=== PATIENT | female | born 2005 | race Caucasian/White ===

== ENCOUNTER → 2023-08-25 | Outpatient (CLI) | payer SELFPAY ==
[2023-08-25 08:09] LABS: Glucose 75GTT - Fasting 88 mg/dL (70-99)
[2023-08-25 08:24] LABS: Free T3 2.4 pg/mL (2.18-3.98); Prolactin 24.7 ng/mL; T4 Free Direct 0.87 ng/dL (0.76-1.46)
[2023-08-25 09:16] LABS: Glucose 75GTT - 30 minutes 156 mg/dL (100-160)
[2023-08-25 09:16] LABS: Glucose 75GTT - 60 minutes 118 mg/dL (100-160)
[2023-08-25 09:30] LABS: Insulin 75GTT - 60 min 129.4 mU/L (Not Estab)
[2023-08-25 09:30] LABS: T3 Total - Triiodothyronine 1.18 ng/mL (0.6-1.81)
[2023-08-25 09:35] LABS: Prolactin 15.4 ng/mL; Thyroid Stim Hormone (TSH) 4.16 uIU/mL (0.358-3.74)
[2023-08-25 09:36] LABS: Prolactin 16.7 ng/mL; Thyroid Stim Hormone (TSH) 4.99 uIU/mL (0.358-3.74)
[2023-08-25 09:55] LABS: Glucose 73 mg/dL (74-106)
[2023-08-25 09:58] LABS: Insulin 45.2 mU/L (2.6-37.6)
[2023-08-25 09:58] LABS: Glucose 75GTT - 120 minutes 90 mg/dL (70-140); Insulin 75GTT - 120 min 100.9 mU/L (Not Estab.)
[2023-08-25 10:00] LABS: Insulin 75GTT - Fasting 8.1 mU/L (2.6-37.6)
== END | disposition home or self-care (01) ==
LOC: LAB 06:59
PROVIDERS: Referring Provider Obstetrics & Gynecology; Visit Provider Obstetrics & Gynecology
DX: E28.9 Ovarian dysfunction, unspecified (principal)
CPT/HCPCS: 36415; 82947; 82951; 82952; 83525; 84146; 84439; 84443; 84480; 84481

== ENCOUNTER → 2023-10-06 | Outpatient (CLI) | payer SELFPAY ==
--- NOTE | 2023-10-06 07:45 | MRI_ITS ---
STUDY: MRI BRAIN WITH AND WITHOUT CONTRAST REASON FOR EXAM: Female, 18 years old. HEADACHE- DAILY X 1 MONTH TECHNIQUE: Standardized multiplanar fat and water weighted pulse sequences were obtained. IV 11ml clariscan was administered for the contrast portion of the examination. COMPARISON: None. FINDINGS: Normal size of the ventricles and extra-axial spaces for the patient''s age. Normal white matter tracts of the supratentorial brain. There are no demyelinating plagues of the supratentorial brain, brainstem or cerebellum. There are no findings suspicious for multiple sclerosis (MS). Normal bilateral frontal poles, and orbital frontal and gyrus recti of the frontal lobes. Normal bilateral temporal tips of the temporal lobes. There are no white matter shear injuries (diffuse axonal injuries). There are no parenchymal hemorrhages or hematomas. There are no findings to suggest prior closed head parenchymal injury of the brain. There are no white matter hyperintensities. Specifically, there are no focal areas of white matter gliosis which are occasionally associated with vasospastic migraine headaches. Normal bilateral basal ganglia. Normal thalami. There is no extra-axial fluid accumulation. Normal T2* images of the brain without demonstrated susceptibility artifact. There is no demonstrated hemosiderin stain. There is no evidence for recent intracranial ischemia or other cause of cytotoxic edema on diffusion weighted imaging (DWI). No hydrocephalus or midline shift is present. No focal parenchymal edema is seen. There are no visualized enhancing lesions of the brain parenchyma or abnormal thickening or enhancement of meninges or dura or skull. Normal flow voids within the major intracranial circulation suggesting patency by spin echo criteria. Normal venous enhancement. There is no enhancing intra-axial or extra-axial abnormality. Normal sella turcica, pituitary gland, infundibular stalk, optic chiasm and hypothalamus. Normal tectal plate and pineal gland. Normal midbrain, ryland and medulla. Normal cerebellum. Normal basal cisterns. Normal bilateral temporal bones. Normal bilateral internal auditory canals. No demonstrated orbital abnormality, within the constraints of a routine brain study. Normal visualized paranasal sinuses. Normal calvarium and skull base. Normal visualized soft tissue structures. Normal visualized upper cervical spine. MRI/Brain W/WO Contrast IMPRESSION: 1. Normal unenhanced and enhanced MRI of the brain. Electronically Signed: James Aaron MD at 10:02 EDT ,
== END | disposition home or self-care (01) ==
PROVIDERS: PCP Family Medicine; Referring Provider Obstetrics & Gynecology; Visit Provider Obstetrics & Gynecology
DX: R51.9 Headache, unspecified (principal)
CPT/HCPCS: 70553; A9575

== ENCOUNTER → 2023-11-18 | Outpatient (CLI) | payer SELFPAY ==
[2023-11-18 08:43] LABS: Prolactin 1.9 ng/mL; T4 Free Direct 1.32 ng/dL (0.76-1.46); Thyroid Stim Hormone (TSH) 0.05 uIU/mL (0.358-3.74)
== END | disposition home or self-care (01) ==
PROVIDERS: PCP Family Medicine; Referring Provider Obstetrics & Gynecology; Visit Provider Obstetrics & Gynecology
DX: E03.8 Other specified hypothyroidism (principal); E21.1 Secondary hyperparathyroidism, not elsewhere classified
CPT/HCPCS: 36415; 84146; 84432; 84439; 84443; 86376; 86800

== ENCOUNTER → 2024-02-24 | Outpatient (CLI) | payer SELFPAY ==
[2024-02-24 15:42] LABS: Hematocrit 36.6 % (37-47); Mean Corp Hgb Conc 32.8 g/dL (32-36); Mean Corpuscular Hgb 30.4 pg (27.0-32.0); Mean Corpuscular Volume 92.7 fL (81-99); Mean Platelet Vol. 9.4 fl (6.2-12.0); Platelet Count 261 K/mm3 (150-450); RBC Distribution Width CV 12.5 % (11.6-14.6); RBC Distribution Width SD 43.1 fl (35.1-43.9); Red Blood Count 3.95 M/mm3 (4.2-5.4); White Blood Count 4.1 K/mm3 (4.4-11.0)
[2024-02-24 16:37] LABS: Ferritin 45 ng/mL (8-252); T4 Free Direct 0.75 ng/dL (0.76-1.46)
== END | disposition home or self-care (01) ==
PROVIDERS: PCP Family Medicine; Referring Provider Obstetrics & Gynecology; Visit Provider Obstetrics & Gynecology
DX: E03.8 Other specified hypothyroidism (principal); R53.82 Chronic fatigue, unspecified
CPT/HCPCS: 36415; 82728; 84439; 84443; 85027

== ENCOUNTER → 2024-05-13 | Outpatient (CLI) | payer SELFPAY ==
[2024-05-13 11:37] LABS: Free T3 2.7 pg/mL (2.18-3.98); T4 Free Direct 1.01 ng/dL (0.76-1.46)
[2024-05-16 18:02] LABS: T3 Total - Triiodothyronine 1.07 ng/mL (0.6-1.81)
== END | disposition home or self-care (01) ==
PROVIDERS: PCP Family Medicine; Referring Provider Obstetrics & Gynecology; Visit Provider Obstetrics & Gynecology
DX: E03.8 Other specified hypothyroidism (principal); E22.1 Hyperprolactinemia; E06.3 Autoimmune thyroiditis; R53.82 Chronic fatigue, unspecified
CPT/HCPCS: 36415; 84146; 84439; 84443; 84480; 84481

== ENCOUNTER → 2024-11-08 | Outpatient (CLI) | payer SELFPAY ==
[2024-11-08 10:10] LABS: Ferritin 68 ng/mL (22-378)
[2024-11-09 08:08] LABS: PROLACTIN 1.5 ng/mL (4.8-33.4)
== END | disposition home or self-care (01) ==
PROVIDERS: Referring Provider Obstetrics & Gynecology; Visit Provider Obstetrics & Gynecology
DX: E03.8 Other specified hypothyroidism (principal); E22.1 Hyperprolactinemia
CPT/HCPCS: 36415; 82728; 84146

== ENCOUNTER → 2024-11-21 | Outpatient (CLI) | payer SELFPAY ==
--- NOTE | 2024-11-21 14:42 | US_ITS ---
PROCEDURE: PELVIC (NON ) 11/21/2024 REASON FOR EXAM: EXCESSIVE AND FREQUENT MENSTRUATION WITH REGULAR CYCLE TECHNIQUE: PELVIC (NON ) ultrasound, transabdominal. Transvaginal imaging was attempted, but due to patient discomfort, images could not be obtained. COMPARISON: None. FINDINGS: Measurements: Uterus: 8.2 x 5.5 x 3.6 cm with a volume of 82 mL Endometrial Thickness: 7.5 mm. Right Ovary: 3.7 x 2.0 x 1.7 cm with a volume of 6.4 mL. Left Ovary: 3.9 x 2.3 x 1.9 cm with a volume of 8.8 mL. Urinary bladder: 15.0 x 10.1 by 10.9 cm, with estimated volume of 860 mL Uterus: Normal size, myometrial echotexture, and contour. Endometrium: Unremarkable. Right ovary: Normal size and echotexture. Left ovary: Normal size and echotexture. Urinary bladder: Unremarkable. No free fluid is evident. US/Pelvic (Non ) IMPRESSION: No abnormality identified Reading Location: [place] [id number]
== END | disposition home or self-care (01) ==
PROVIDERS: Referring Provider Obstetrics & Gynecology; Visit Provider Obstetrics & Gynecology
DX: N92.0 Excessive and frequent menstruation with regular cycle (principal)
CPT/HCPCS: 76856

== ENCOUNTER → 2025-01-12 | Outpatient (CLI) | payer SELFPAY ==
[2025-01-12 10:12] LABS: Free T3 3.5 pg/mL (2.18-3.98); T3 Total - Triiodothyronine 1.33 ng/mL (0.80-2.00)
[2025-01-13 04:07] LABS: PROLACTIN 14.3 ng/mL (4.8-33.4)
== END | disposition home or self-care (01) ==
PROVIDERS: Visit Provider Obstetrics & Gynecology
DX: E03.8 Other specified hypothyroidism (principal); E22.1 Hyperprolactinemia
CPT/HCPCS: 36415; 84146; 84439; 84443; 84480; 84481